=== PATIENT | male | born 1945 | race Caucasian/White ===

== ENCOUNTER 2017-10-05 22:19 | Emergency (ER) | payer MEDICARE ==
[2017-10-05] MEDS ORDERED: SULFAMETHOXAZOLE/TRIMETHOPRIM 800-160 MG TABLET PO ONE (23:51)
--- NOTE | 2017-10-05 23:52 | ER Document Report ---
HPI - HPI Patient complains to provider of: Left hand infection Onset: Other - 3-4 days Onset/Duration: Persistent Quality of pain: Achy Pain Level: 1 Context: Patient states that he had an insect bite to the dorsal aspect of his left hand that started a few days ago. Patient states that the area was initially pruritic. Patient states that gradually has become erythematous and swollen. Patient has been applying Bactroban ointment to the area. Patient denies any history of MRSA. Associated Symptoms: Other - Skin lesion. denies: Fever Exacerbated by: Denies Relieved by: Denies Similar symptoms previously: No Recently seen / treated by doctor: No - ROS ROS below otherwise negative: Yes Systems Reviewed and Negative: Yes All other systems reviewed and negative - CONSTITUTIONAL Constitutional: DENIES: Fever, Chills - GASTROINTESTINAL Gastrointestinal: DENIES: Nausea - MUSCULOSKELETAL Musculoskeletal: REPORTS: Extremity pain - DERM Skin Color: Erythema Past Medical History - General Information source: Patient - Social History Smoking Status: Never Smoker Frequency of alcohol use: None Drug Abuse: None Occupation: Retired educator Lives with: Spouse/Significant other Family History: Reviewed & Not Pertinent - Past Medical History Cardiac Medical History: Denies: Hx Coronary Artery Disease, Hx Heart Attack, Hx Hypertension Pulmonary Medical History: Denies: Hx Asthma, Hx Bronchitis, Hx COPD, Hx Pneumonia Neurological Medical History: Denies: Hx Cerebrovascular Accident, Hx Seizures Endocrine Medical History: Reports: Hx Diabetes Mellitus Type 2 GI Medical History: Reports: Hx Hiatal Hernia. Denies: Hx Hepatitis, Hx Ulcer Musculoskeltal Medical History: Denies Hx Arthritis Infectious Medical History: Denies: Hx Hepatitis Past Surgical History: Reports: Other - Prostate surgery. Denies: Hx Open Heart Surgery, Hx Pacemaker - Immunizations Hx Diphtheria, Pertussis, Tetanus Vaccination: Yes Hx Pneumococcal Vaccination: 05/28/11 Vertical Provider Document - CONSTITUTIONAL Agree With Documented VS: Yes Exam Limitations: No Limitations General Appearance: WD/WN, No Apparent Distress - INFECTION CONTROL TRAVEL OUTSIDE OF THE [place] IN LAST 30 DAYS: No - HEENT HEENT: Atraumatic, Normocephalic - NECK Neck: Normal Inspection - RESPIRATORY Respiratory: No Respiratory Distress - CARDIOVASCULAR Pulses: Normal: Radial - MUSCULOSKELETAL/EXTREMETIES Musculoskeletal/Extremeties: MAEW - NEURO Level of Consciousness: Awake, Alert, Appropriate Motor/Sensory: No Motor Deficit - DERM Integumentary: Warm, Dry, Abscess - 1 cm abscess to dorsal aspect of left hand Course - Vital Signs Vital signs: Temp Pulse Resp BP Pulse Ox 98.7 F 92 18 147/80 H 98 10/05/17 22:47 10/05/17 22:47 10/05/17 22:47 10/05/17 22:47 10/05/17 22:47 Procedures - Incision and Drainage Left Hand Type: Simple I&D procedure: Other - Alcohol prep Incision Method: Incision made with needle Amount/type of drainage: Moderate amount of purulent drainage Hands back picture: 1 - Abscess to dorsal aspect of left hand Discharge - Discharge Clinical Impression: Hand abscess Condition: Stable Disposition: HOME, SELF-CARE Instructions: Abscess ([facility]), Post Incision and Drainage, Trimethoprim-Sulfa ( [facility]) Additional Instructions: Return immediately for any new or worsening symptoms Followup with your primary care provider, call tomorrow to make a followup appointment Culture is pending, we will call if you need any different treatment Keep wound covered as it continues to heal Prescriptions: Sulfamethoxazole/Trimethoprim [Bactrim Ds Tablet] 1 each PO BID #14 tablet Referrals: LEN DE LEON MD [Primary Care Provider] - Follow up as needed
[2017-10-06 00:12] VITALS: BP 129/81
== END 2017-10-06 00:12 | disposition home or self-care (01) ==
LOC: ER 22:19
DX: L02.512 Cutaneous abscess of left hand (principal); E11.9 Type 2 diabetes mellitus without complications
CPT/HCPCS: 99283; 87070; 87205; 87075; 87077; 87186; 10060; A9270

== ENCOUNTER 2017-10-18 07:30 | Day surgery (SDC) | payer MEDICARE ==
[~2017-10-18 07:30] MED LIST: DIPHENHYDRAMINE HCL 50 MG/ML VIAL ONE; EPINEPHRINE INJ 1 MG/10 ML DISP.SYRIN ONE; FENTANYL CITRATE INJ/PF 100 MCG/2 ML AMPUL ONE; FLUMAZENIL INJ 0.5 MG/5 ML VIAL ONE; GLUCAGON,HUMAN RECOMB 1 MG INJ ONE; NALOXONE HCL INJ/PF 0.4 MG/1 ML SDV ONE; ONDANSETRON HCL INJ/PF 4 MG/2 ML SDV ONE
[2017-10-18] MEDS: MIDAZOLAM 2 MG/2 ML INJ ONE ×2 (07:38→07:42)
--- NOTE | 2017-10-18 08:20 | Operative Report ---
Operative Report DATE OF SURGERY: 10/18/17 PREOPERATIVE DIAGNOSIS: 1. Personal history of tubular adenoma of the colon POSTOPERATIVE DIAGNOSIS: Extensive sigmoid diverticulosis disease OPERATION: Total colonoscopy to cecum with photodocumentation SURGEON: LULI PYLE ANESTHESIA: Moderate Sedation TISSUE REMOVED OR ALTERED: None COMPLICATIONS: None ESTIMATED BLOOD LOSS: none INTRAOPERATIVE FINDINGS: See below PROCEDURE: Obtaining informed consent the patient was taken from the preoperative holding area to the main endoscopy suite where monitoring devices were attached to the patient. Plan and surgical timeout were conducted The patient was placed in the left lateral decubitus position with knees to chest. A perianal examination was performed. There was no visible or palpable anorectal pathology. Sphincter tone was felt to be normal. The flexible adult colonoscope was advanced through the anal rectal canal, all the way to the cecum. Visualization of the cecum was achieved and the ileocecal valve, the appendiceal orifice and transillumination of the anterior abdominal wall. This was an excellent study on the well-prepped bowel. The colonoscope was withdrawn slowly and methodically checked and the mucosa carefully. There was no evidence of tumor, stricture, bleeding or polyp. There were extensive diverticulosis . The scope was slowly withdrawn through the anal rectal canal. Complete visualization of the rectum was achieved with photodocumentation. The scope was withdrawn to the patient's anus. The patient tolerated the procedure well and was taken to the recovery area in stable condition. Per Surveillance guidelines, patient will be considered for follow-up colonoscopy in 5 years.
--- NOTE | 2017-10-18 08:21 | Discharge Summary ---
Discharge Summary (SDC) - Discharge Final Diagnosis: Sigmoid diverticulosis Date of Surgery: 10/18/17 Discharge Date: 10/18/17 Condition: Good Treatment or Instructions: [facility] [place] [id number] POST ENDOSCOPY DISCHARGE INSTRUCTIONS 1. Diet: Start clear liquids that a regular diet as tolerated. 2. Resume all preoperative medications. All oral anticoagulants and aspirins can be resumed 24 hours after procedure. 3. If a polypectomy was performed some bleeding per rectum may occur. This should stop within 3 days. If not, please contact the office. 4. If you had a colonoscopy you may experience some bloating and delayed return of normal bowel function for several days, your regular bowel movement pattern should resume within a week. 5. Please contact [facility] at to make an appointment with Dr. Moscoso for 1 to 3 weeks following procedure. 6. If you have any questions or concerns regarding your care,treatment plan or follow up, please contact our office. 7. Per clinical guidelines we recommend you undergo a repeat colonoscopy in 5 years. Referrals: LEN DE LEON MD [Primary Care Provider] - Discharge Diet: As Tolerated Discharge Activity: Activity As Tolerated Home Care Assistance: None Needed Report the Following to Your Physician Immediately: Shortness of Breath, Increase in Pain, Fever over 101 Degrees
[2017-10-18 09:03] VITALS: BP 111/71
== END 2017-10-18 09:10 | disposition home or self-care (01) ==
LOC: END 07:30
PROVIDERS: ATTEND Surgery
DX: Z12.11 Encounter for screening for malignant neoplasm of colon (principal); K57.30 Diverticulosis of large intestine without perforation or abscess without bleeding; E11.9 Type 2 diabetes mellitus without complications; Z79.82 Long term (current) use of aspirin; Z79.899 Other long term (current) drug therapy; Z80.0 Family history of malignant neoplasm of digestive organs; Z86.010 Personal history of colon polyps; Z85.828 Personal history of other malignant neoplasm of skin; Z83.79 Family history of other diseases of the digestive system
CPT/HCPCS: 45378; 82962; J2250; J3010; J0171; J1200; J1610; J2310; J2405; J3490

== ENCOUNTER → 2017-10-30 | Outpatient (CLI) | payer MEDICARE | LOC: OD 14:07 | PROVIDERS: ATTEND Urology | DX: C61 Malignant neoplasm of prostate (principal) | CPT/HCPCS: 36415 ==